=== PATIENT | male | born 1990 | race Hispanic/Latino ===

== ENCOUNTER 2016-09-09 14:25 | Emergency (ER) | payer SELFPAY ==
[2016-09-09 15:04] VITALS: BP 132/76
[2016-09-09 16:02] LABS: Basophils % (Auto) 0.3 % (0.0-1.8); Eosinophils % (Auto) 0.1 % (0.0-4.3); Hemoglobin 16.3 gm/dl (11.8-15.2); Mean Corpuscular HGB Conc 35 % (32-34); Mean Corpuscular Hemoglobin 31 pg (28-32); Mean Corpuscular Volume 88 fl (84-94); Platelet Count 225 K/mm3 (140-440); Red Blood Count 5.34 M/mm3 (3.65-5.03); Red Cell Distribution Width 13.2 % (13.2-15.2); White Blood Count 9.9 K/mm3 (4.5-11.0)
[2016-09-09 16:18] LABS: Anion Gap 22 mmol/L; BUN/Creatinine Ratio 21.25; Blood Urea Nitrogen 17 mg/dL (9-20); Calcium 9.4 mg/dL (8.4-10.2); Carbon Dioxide 25 mmol/L (22-30); Chloride 95.1 mmol/L (98-107); Glucose 95 mg/dL (75-100); Potassium 3.8 mmol/L (3.6-5.0); Sodium 138 mmol/L (137-145)
[2016-09-09 17:14] LABS: Urine Drugs of Abuse Note Disclamer
[2016-09-09 17:32] LABS: Bilirubin,Urine NEG (Negative); Blood,Urine NEG (Negative); Ketones,Urine 80 mg/dL (Negative); Leukocyte Esterase,Urine NEG (Negative); Mucus,Urine 3+ /HPF; Nitrite,Urine NEG (Negative); Urobilinogen,Urine < 2.0 mg/dL (<2.0)
--- NOTE | 2016-09-09 18:07 | Emergency Department Report ---
HPI - General Chief Complaint: Psych Time Seen by Provider: 09/09/16 17:38 - HPI HPI: This is a 26-year-old male who presents to the emergency department by EMS from the [facility] with complaint of hearing voices. The patient says that he started hearing voices about 5 years ago and they have been continuous and he says that there is "nothing I can do to stop it." The patient says that sometimes these are voices that he is familiar with but other times he has no idea who might be talk exam and they tell him things like "I should join the [employer]." Patient denies any visual hallucinations, suicidal or homicidal ideations. The patient says he is not sure whether years ever been truly diagnosed with schizophrenia but he used to be on medications including different combinations of anti-psychotics, antidepressives and "test medications." The patient is from [facility] and says that he has been traveling to [place] to "try and get some help" and says that he was at the airport because he was trying to find a way to get to [facility] also to try and get some help. The patient starts mentioning that he decided to get help when he started noticing "Towers" on the sides of buildings, in apartment complexes and on businesses "like the twin towers kind of stuff." ED Past Medical Hx - Past Medical History Previous Medical History?: Yes Hx Psychiatric Treatment: Yes (schizophrenia) - Surgical History Past Surgical History?: No - Social History Smoking Status: Never Smoker Substance Use Type: None ED Review of Systems ROS: Stated complaint: HEARING VOICES Other details as noted in HPI Comment: All other systems reviewed and negative Constitutional: denies: chills, fever Eyes: denies: eye pain, eye discharge, vision change ENT: denies: ear pain, throat pain Respiratory: denies: cough, shortness of breath, wheezing Cardiovascular: denies: chest pain, palpitations Gastrointestinal: denies: abdominal pain, nausea, diarrhea Genitourinary: denies: urgency, dysuria Musculoskeletal: denies: back pain, joint swelling, arthralgia Skin: denies: rash, lesions Neurological: denies: headache, weakness, paresthesias Psychiatric: auditory hallucinations. denies: visual hallucinations, homicidal thoughts, suicidal thoughts Physical Exam - Physical Exam Vital Signs: Vital Signs 09/09/16 14:58 Temperature 98.5 F Pulse Rate 101 H Blood Pressure 132/76 O2 Sat by Pulse 100 Oximetry Physical Exam: GENERAL: The patient is well-developed well-nourished. HEENT: Normocephalic. Atraumatic. Extraocular motions are intact. Patient has moist mucous membranes. Pupils equal reactive to light bilaterally. NECK: Supple. Trachea is midline. CHEST/LUNGS: Clear to auscultation. There is no respiratory distress noted. HEART/CARDIOVASCULAR: Regular. There is no tachycardia. There is no gallop rub or murmur. ABDOMEN: Abdomen is soft, nontender. Patient has normal bowel sounds. There is no abdominal distention. SKIN: Skin is warm and dry. NEURO: The patient is awake, alert, and oriented. The patient is cooperative. The patient has no focal neurologic deficits. The patient has no slurred speech and gait. MUSCULOSKELETAL: There is no tenderness or deformity. There is no limitation range of motion. There is no evidence of acute injury. PSYCH: Patient is slightly hyperverbal but otherwise remains calm and coherent. ED Course Vital Signs 09/09/16 14:58 Temperature 98.5 F Pulse Rate 101 H Blood Pressure 132/76 O2 Sat by Pulse 100 Oximetry ED Medical Decision Making - Lab Data Result diagrams: 09/09/16 15:43 09/09/16 15:43 - Medical Decision Making This is a 26-year-old male presents to the emergency department with complaint of auditory hallucinations. The patient is from [facility] and says that he is in [place] trying to get psychiatric help. Patient's labs are mostly unremarkable other than a positive amphetamine on urine drug screen. This does not mean that the patient took it today and he does not necessarily appear intoxicated. The patient has no visual hallucinations, suicidal or homicidal ideations and does not appear to be in any acute psychosis. The patient was seen by the crisis therapist to agrees that the patient does not appear to meet criteria for coming becoming a 1013 and having inpatient psychiatric admission. The patient is requesting a ticket to get back to [facility]. I explained to the patient that we cannot provide that kind of resources to him. However he has been given a referral for the [facility] facility. We discussed in detail the symptoms or signs for which she should return to the closest emergency department. He understands and agrees to the plan. Critical Care Time: No Critical care attestation.: If time is entered above; I have spent that time in minutes in the direct care of this critically ill patient, excluding procedure time. ED Disposition Clinical Impression: Auditory hallucinations Disposition: DISCHARGED TO HOME OR SELFCARE Is pt being admited?: No Condition: Stable Instructions: Schizophrenia (ED) Additional Instructions: I have given you a referral for the [facility] facility encase she would like to seek help regarding your auditory hallucinations. Return to the emergency department with any worsening of your symptoms, thoughts of harming yourself or others, or any acute distress. Referrals: PRIMARY CARE, [Primary Care Provider] - 3-[address] [facility] [Outside] - 3-5 Days Time of Disposition: 19:11
== END 2016-09-09 19:41 | disposition home or self-care (01) ==
LOC: ED 14:25
DX: R44.0 Auditory hallucinations (principal); F20.9 Schizophrenia, unspecified
CPT/HCPCS: 36415; 80048; 80307; 81001; 85025; 99283; G0480; 80320

== ENCOUNTER 2016-09-10 20:27 | Emergency (ER) | payer SELFPAY ==
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
[2016-09-11] MEDS ORDERED: CLEOCIN IM ONE (00:06)
[2016-09-11] MEDS ORDERED: BOOSTRIX IM ONE (00:06)
[2016-09-11] MEDS ORDERED: MOTRIN PO ONE (00:06)
[2016-09-11] MEDS ORDERED: NACL 0.9% IR ONE (00:09)
[2016-09-11] MEDS ORDERED: TRIPLE ANTIBIOTIC TP ONE (00:10)
[2016-09-11 02:32] VITALS: BP 151/88
== END 2016-09-11 02:33 | disposition home or self-care (01) ==
LOC: ED 20:27
DX: S91.301A Unspecified open wound, right foot, initial encounter (principal); L03.115 Cellulitis of right lower limb; F20.9 Schizophrenia, unspecified; X58.XXXA Exposure to other specified factors, initial encounter; Y93.9 Activity, unspecified; Y99.9 Unspecified external cause status; Y92.89 Other specified places as the place of occurrence of the external cause
CPT/HCPCS: 90471; 90715; 96372; A6250